=== PATIENT | male | born 1945 | race Caucasian/White ===

== ENCOUNTER → 2017-03-02 | Outpatient (CLI) | payer MEDICARE, BC ==
[~2017-03-02] MED LIST: ASA325 MG PO; CALCIUM-MAGNES1 EAC1 PO; DELTASONE DPS5 MG PO; GLUCOSAMINE &1 EAC1 PO; MOBIC15 MG PO; OXY IR DPS5 MG PO; PROTONIX40 MG PO; TYLENOL DPS325 MG PO; ULTRAM DPS50 MG PO; VITAMIN B-121000 MCG PO; VITAMIN D32000 UNIT PO; ZESTORETIC 20/11 TAB PO; ZYTIGA250 MG PO
== END | disposition home or self-care (01) ==
LOC: RAD.S 10:07
DX: M54.5 Low back pain (principal); M51.26 Other intervertebral disc displacement, lumbar region; M51.36 Other intervertebral disc degeneration, lumbar region